=== PATIENT | female | born 1950 | race Caucasian/White ===

== ENCOUNTER 2018-07-25 10:34 | Outpatient (CLI) | payer OTHER | END 2018-07-25 10:35 | disposition home or self-care (01) | LOC: LAB 10:34 | PROVIDERS: ATTEND Family Medicine | DX: E78.2 Mixed hyperlipidemia (principal); E11.65 Type 2 diabetes mellitus with hyperglycemia; I50.32 Chronic diastolic (congestive) heart failure; E66.01 Morbid (severe) obesity due to excess calories; Z68.45 Body mass index [BMI] 70 or greater, adult; M19.90 Unspecified osteoarthritis, unspecified site; N18.9 Chronic kidney disease, unspecified | CPT/HCPCS: 36415; 80053; 80061; 83036; 84439; 84443; 85025; 86140 ==

== ENCOUNTER 2018-08-05 17:52 | Outpatient (CLI) | payer OTHER | END 2018-08-05 17:53 | disposition home or self-care (01) | LOC: LAB 17:52 | PROVIDERS: ATTEND Family Medicine | DX: N18.9 Chronic kidney disease, unspecified (principal) | CPT/HCPCS: 36415; 80048 ==

== ENCOUNTER 2018-08-11 23:01 | Outpatient (CLI) | END 2018-08-11 23:37 | disposition short-term general hospital (02) | LOC: AMBL 23:01 | PROVIDERS: ATTEND Emergency Medicine | DX: R07.9 Chest pain, unspecified (principal); R53.1 Weakness; R68.84 Jaw pain; R53.83 Other fatigue; R55 Syncope and collapse; E11.9 Type 2 diabetes mellitus without complications; J44.9 Chronic obstructive pulmonary disease, unspecified ==